=== PATIENT | female | born 1990 | race Hispanic/Latino ===

== ENCOUNTER 2016-11-20 14:13 | Outpatient (CLI) | payer OTHER ==
--- NOTE | 2016-11-20 15:45 | Ultrasound Report ---
Left breast ultrasound: The patient presents with her physician noticing left breast nipple retraction. The patient did not notice this and has no idea of chronicity. Of note is that the examining technologist indicated that there was only slight retraction on the supine positioning and the nipples appear relatively seen in the upright position. Global left breast ultrasound was performed. No evidence of mass, architectural distortion, nor other abnormal finding identified. Impression: Normal exam. Recommendation: Clinical followup. Any additional evaluation at this time should be based on your concern. BI-RADS CATEGORY: 1 = Negative ACR BI-RADS MAMMOGRAPHIC CODES: 0 = Needs additional imaging evaluation; 1 = Negative; 2 = Benign; 3 = Probably benign; 4 = Suspicious; 5 = Malignant; 6 = Known biopsy-proven malignancy COMMENT: 1. Dense breast tissue, i.e., adenosis, fibrocystic changes, etc., may obscure an underlying neoplasm. 2. Approximately 10% of cancers are not detected with mammography. 3. A negative mammography report should not delay biopsy if a clinically suspicious mass is present.
== END 2016-11-20 14:14 | disposition home or self-care (01) ==
LOC: US 14:13
PROVIDERS: ATTEND Nurse Practitioner Family
DX: Z01.419 Encounter for gynecological examination (general) (routine) without abnormal findings (principal); N64.53 Retraction of nipple